=== PATIENT | male | born 1995 | race Two or more races ===

== ENCOUNTER 2018-07-31 09:43 | Emergency (ER) | payer SELFPAY ==
[2018-07-31 10:48] LABS: Bilirubin Negative (Negative); Blood, Urine Negative (Negative); Clarity CLEAR (Clear); Glucose, Urine (Dipstick) Negative (Negative); Leukocyte Trace (Negative); Nitrite Negative (Negative); Protein, Urine (Dipstick) Negative (Neg-Trace); Specific Gravity, Urine 1.027 (1.002-1.036); Urobilinogen 0.2 mg/dL (0.2-1.0)
[2018-07-31 10:50] LABS: Bacteria/HPF None Seen HPF (None Seen); Hyaline Casts/LPF 0-3 HYALINE CAST LPF (0-3 Hyaline); Pathc Cast-AUWi Flag 0.14 (0-2.49); RBC/HPF 0-3 HPF (0-3); Squamous Epithelial None Seen HPF (0-3)
[2018-07-31] MEDS ORDERED: Lidocaine 1% PF 5 ML VIAL ONE (11:28)
[2018-07-31] MEDS ORDERED: cefTRIAXone\\ROCEPHIN 250 MG VIAL ONE (11:28)
[2018-07-31] MEDS ORDERED: Azithromycin 250 MG TAB ONE (11:28)
== END 2018-07-31 11:58 | disposition home or self-care (01) ==
LOC: ERS 09:43
DX: A74.9 Chlamydial infection, unspecified (principal)
CPT/HCPCS: 81003; 81015; 96372; J0696; J2001